=== PATIENT | male | born 1955 | race African-American/Black ===

== ENCOUNTER 2022-06-19 09:43 | Emergency (ER) | payer MEDICARE, MEDICAID ==
[~2022-06-19] VITALS: Ht 363.2 cm; Wt 85.0 kg
[2022-06-19 09:51] VITALS: BP 101/72
[2022-06-19 10:00] VITALS: BP 108/66
[2022-06-19] MEDS ORDERED: NITROGLYCERIN0.4 MG (10:08)
[2022-06-19] MEDS ORDERED: ASPIRIN81 MG PO (10:08)
[2022-06-19 10:09] LABS: HEMOGLOBIN 13.7 g/dl (14.0-18.0); IMMATURE GRANULOCYTES 0.5 % (0.0-5.0); MEAN CELL VOLUME 92.1 fL CALC (80.0-100.0); MEAN CORPUSCULAR HGB 30.8 pG CALC (26.0-32.0); MEAN CORPUSCULAR HGB CONC 33.4 g/dL CAL (32.0-36.0); NEUT# 2.61 thou/uL (1.82-7.42); RED BLOOD COUNT 4.45 mill/uL (4.70-6.10); RED CELL DISTRI WIDTH 12.9 % (11.5-15.5)
[2022-06-19] MEDS ORDERED: NAPROXEN375 MG PO (10:09)
[2022-06-19 10:21] LABS: ALBUMIN 4.5 g/dL (3.2-5.0); ALKALINE PHOSPHATASE 45 u/l (38-126); ANION GAP 12 (6-22 (CALC)); BILIRUBIN, TOTAL 1.7 mg/dL (0.0-1.4); BUN 12 mg/dL (8-23); BUN/CREATININE RATIO 13 (12-20 (CALC)); CARBON DIOXIDE 25 mmol/l (22-30); CHLORIDE 109 mmol/l (95-108); CREATININE 0.9 mg/dL (0.7-1.3); GFR FOR AFR.AMER. > 60 ML/MIN (>=60 (CALC)); GFR OTHER RACES > 60 ML/MIN (>=60 (CALC)); POTASSIUM 5.1 mmol/l (3.5-5.1); SGOT/AST 69 u/l (19-48); SODIUM 140 mmol/l (137-146); TOTAL PROTEIN 8.1 g/dL (6.3-8.2)
[2022-06-19 10:30] VITALS: BP 105/67
[2022-06-19 11:00] VITALS: BP 106/68
[2022-06-19 11:33] VITALS: BP 106/68
== END 2022-06-19 11:30 | disposition left against medical advice (07) ==
LOC: ED 09:43
PROVIDERS: Family Medicine
DX: R07.9 Chest pain, unspecified (principal); Z53.29 Procedure and treatment not carried out because of patient's decision for other reasons

== ENCOUNTER 2024-08-12 08:12 | Emergency (ER) | payer MEDICARE, MEDICAID ==
[~2024-08-12] VITALS: Ht 167.6 cm; Wt 82.0 kg
[2024-08-12] VITALS (7 sets, daily range): BP systolic 99–119; BP diastolic 64–76
[~2024-08-12 08:12] MED LIST: ASPIRIN81 MG PO; NAPROXEN375 MG PO; NITROGLYCERIN0.4 MG; PRIMIDONE50 MG PO; TADALAFIL20 M1 PO
[2024-08-12] MEDS ORDERED: ASPIRIN 81 MG/TAB PO ONE ×2 (08:15→08:25)
[2024-08-12 08:56] LABS: CREATININE 1.3 mg/dL (0.7-1.3); POTASSIUM 4.5 mmol/l (3.5-5.1); TOTAL PROTEIN 7.9 g/dL (6.3-8.2)
[2024-08-12 08:59] LABS: ALBUMIN 4.3 g/dL (3.2-5.0); BILIRUBIN, TOTAL 1.3 mg/dL (0.2-1.3)
[2024-08-12 09:07] LABS: BASO% 0.2 % (0-3); HEMATOCRIT 43.1 % (39.0-50.0); HEMOGLOBIN 13.9 g/dl (14.0-18.0); IMMATURE GRANULOCYTES 0.6 % (0.0-5.0); LYMPH% 4.5 % (15-41); MEAN CELL VOLUME 92.3 fL CALC (80.0-100.0); MEAN CORPUSCULAR HGB 29.8 pG CALC (26.0-32.0); MEAN CORPUSCULAR HGB CONC 32.3 g/dL CAL (32.0-36.0); MONO% 1.9 % (2-13); NEUT# 4.31 thou/uL (1.82-7.42); NEUT% 92.8 % (42-76); RED BLOOD COUNT 4.67 mill/uL (4.70-6.10); RED CELL DISTRI WIDTH 12.1 % (11.5-15.5)
== END 2024-08-12 11:22 | disposition left against medical advice (07) ==
LOC: ED 08:12
PROVIDERS: Family Medicine
DX: R07.9 Chest pain, unspecified (principal); Z53.29 Procedure and treatment not carried out because of patient's decision for other reasons